=== PATIENT | female | born 1965 | race Caucasian/White ===

== ENCOUNTER 2023-08-26 16:35 | Outpatient (CLI) | payer BC, SELFPAY ==
[2023-08-26 18:19] LABS: Chloride 108 mmol/L (98-107)
[2023-08-26 18:20] LABS: Potassium 3.8 mmoL/L (3.5-5.1); Sodium 140 mmol/L (136-145)
[2023-08-26 18:22] LABS: Alanine Aminotransferase 473 U/L (12-78); Alkaline Phosphatase 195 U/L (38-126); Aspartate Amino Transferase 565 U/L (14-36); Bilirubin,Total 1.7 mg/dl (0.2-1.3); Blood Urea Nitrogen 12 mg/dl (7-17); Estimated Glomerular Filt Rate 74 ml/min (>60); GFR (African American) 90 ML/MIN (>60)
[2023-08-26 18:23] LABS: Albumin Level 3.6 g/dl (3.5-5.0); Albumin/Globulin Ratio 0.6 (1.1-1.8); Anion Gap 6.8 mEq/L (5-15); Calcium 8.8 mg/dl (8.4-10.2); Carbon Dioxide 29 mmol/L (22.0-30.0); Globulin 5.8 g/dL (1.3-3.2); Glucose 106 mg/dl (74-100); Total Protein,Serum 9.4 g/dl (6.3-8.2)
== END 2023-08-26 23:59 | disposition home or self-care (01) ==
LOC: LAB 16:49
PROVIDERS: PCP Internal Medicine; Visit Provider Internal Medicine Gastroenterology
DX: R79.89 Other specified abnormal findings of blood chemistry (principal)
CPT/HCPCS: 36415; 80053